=== PATIENT | female | born 1975 | race Caucasian/White ===

== ENCOUNTER 2021-04-05 10:12 | Outpatient (REF) | payer MEDICARE, SELFPAY ==
--- NOTE | ~2021-04-05 | XR_ITS ---
EXAMINATION: XR KNEE, LEFT CLINICAL INFORMATION: Pain COMPARISON: None TECHNIQUE: Two views of the left knee. FINDINGS: Bone alignment is normal. No fracture or dislocation is seen. There is mild arthritis at the medial femoral tibial and patellofemoral joints. There is a moderate joint effusion. XR/XR knee LT 2V IMPRESSION: Degenerative changes and joint effusion.
== END 2021-04-05 10:13 | disposition home or self-care (01) ==
LOC: HO.XRAY 10:12
PROVIDERS: PCP Nurse Practitioner Family; Visit Provider Nurse Practitioner Family
DX: M25.562 Pain in left knee (principal)
CPT/HCPCS: 73560

== ENCOUNTER 2021-05-18 11:59 | Outpatient (REF) | payer MEDICARE, SELFPAY ==
--- NOTE | ~2021-05-18 | XR_ITS ---
EXAMINATION: XR KNEE, LEFT CLINICAL INFORMATION: Swelling, pain, or effusion. COMPARISON: Radiographs left knee 04/05/2021. TECHNIQUE: Four views of the left knee. FINDINGS: There is a moderate to large suprapatellar effusion similar to prior exam 04/05/2021. Hoffa's fat pad appears normal. The bony mineralization is normal. There is no fracture or destructive process or dislocation. No periostitis. There is borderline narrowing medial knee joint compartment with small osteophyte medial femoral condyle. No erosive change or chondrocalcinosis. Axial view patella shows no lateralization or tilting. XR/XR knee LT 4V IMPRESSION: 1. Moderate to large suprapatellar effusion similar to prior exam 04/05/2021. 2. Mild degenerative change medial knee joint compartment. No erosive change. No destructive process.
== END 2021-05-18 12:00 | disposition home or self-care (01) ==
LOC: HO.XRAY 11:59
PROVIDERS: PCP Nurse Practitioner Family; Visit Provider Nurse Practitioner Family
DX: M25.462 Effusion, left knee (principal)
CPT/HCPCS: 73564

== ENCOUNTER 2021-06-02 14:26 | Outpatient (REF) | payer MEDICARE, SELFPAY ==
--- NOTE | ~2021-06-02 | MM_ITS ---
EXAMINATION: MM SCREENING DIGITAL BREAST TOMOSYNTHESIS, BILATERAL CLINICAL INFORMATION: Screening. Asymptomatic. Remote benign left breast biopsy at outside facility. Prior outside mammography no longer available, perched. Family history breast cancer, maternal aunt. The lifetime risk of breast cancer based on the Tyrer-Cuzick Model is 15%. COMPARISON: None (current study represents new baseline exam). TECHNIQUE: Digital breast tomosynthesis is performed in both the craniocaudal and mediolateral oblique views along with computer-aided detection (CAD). Synthesized 2D images are generated from the tomosynthesis. FINDINGS: There are scattered areas of fibroglandular density (ACR BI-RADS breast composition Category b). There are scattered bilateral benign parenchymal asymmetries. There is no three-dimensional mass or architectural abnormality. No abnormal calcifications. There is a biopsy clip marker mid 9:00 left breast. The axilla and skin contours are unremarkable. MM/MM tomosynthesis screening BI IMPRESSION: No mammographic evidence of malignancy. ASSESSMENT: BI-RADS 2: Benign RECOMMENDATION: Routine annual mammography screening. This patient's information was entered into a reminder system with a target due date for their next mammogram.
== END 2021-06-02 14:27 | disposition home or self-care (01) ==
LOC: HO.MAMMO 14:26
PROVIDERS: PCP Nurse Practitioner Family; Visit Provider Nurse Practitioner Family
DX: Z12.31 Encounter for screening mammogram for malignant neoplasm of breast (principal)
CPT/HCPCS: 77063; 77067

== ENCOUNTER 2021-06-21 13:00 | Outpatient (REF) | payer MEDICARE, SELFPAY ==
--- NOTE | ~2021-06-21 | US_ITS ---
EXAMINATION: ULTRASOUND EXTREMITY NONVASCULAR CLINICAL INFORMATION: Lateral left knee swelling. COMPARISON: Left knee radiographs dated 05/18/2021. TECHNIQUE: Multiple 2-D grayscale and color Doppler ultrasound images of the left knee were obtained. FINDINGS: An anechoic collection is seen laterally in the suprapatellar region anteriorly in the left knee measuring approximately 5.7 x 5.1 x 1.5 cm. Color Doppler showed no internal vascular flow. The surrounding soft tissues are unremarkable. US/US extremity nonvascular IMPRESSION: Anechoic collection anteriorly in the left knee correlates with the suprapatellar joint effusion seen on the recent left knee radiographs. Determination of interval change in size of the effusion between the 2 different modalities is limited.
== END 2021-06-21 13:01 | disposition home or self-care (01) ==
LOC: HO.US 13:00
PROVIDERS: Visit Provider Nurse Practitioner Family
DX: M25.462 Effusion, left knee (principal)
CPT/HCPCS: 76882

== ENCOUNTER → 2021-07-20 10:52 | Outpatient (BNVA) | payer MEDICARE, SELFPAY | PROVIDERS: PCP Nurse Practitioner Family; Visit Provider Orthopaedic Surgery | DX: M17.12 Unilateral primary osteoarthritis, left knee (principal) | CPT/HCPCS: 20610; 99202; J1100 ==